=== PATIENT | female | born 1965 | race Caucasian/White ===

== ENCOUNTER 2017-09-09 15:02 | Emergency (ER) | payer OTHER ==
[~2017-09-09] VITALS: Ht 157.5 cm; Wt 72.1 kg
[2017-09-09] MEDS ORDERED: KETO10TA2 PO (19:24)
== END 2017-09-09 19:42 | disposition home or self-care (01) ==
LOC: ER 15:02
DX: S60.212A Contusion of left wrist, initial encounter (principal); S40.012A Contusion of left shoulder, initial encounter; S30.0XXA Contusion of lower back and pelvis, initial encounter; W01.0XXA Fall on same level from slipping, tripping and stumbling without subsequent striking against object, initial encounter; Y93.01 Activity, walking, marching and hiking; Y92.89 Other specified places as the place of occurrence of the external cause; Y99.8 Other external cause status